=== PATIENT | male | born 1995 | race Caucasian/White ===

== ENCOUNTER 2020-06-01 17:16 | Emergency (ER) | payer SELFPAY ==
[~2020-06-01] VITALS: Ht 180.3 cm; Wt 72.0 kg
[2020-06-01 22:00] VITALS: BP 124/83
== END 2020-06-01 23:39 | disposition home or self-care (01) ==
LOC: ER 17:16
DX: F15.129 Other stimulant abuse with intoxication, unspecified (principal); F11.129 Opioid abuse with intoxication, unspecified
CPT/HCPCS: 99283